=== PATIENT | female | born 1970 | race Caucasian/White ===

== ENCOUNTER 2017-04-17 13:26 | Emergency (ER) | payer OTHER ==
[~2017-04-17] VITALS: Ht 170.2 cm; Wt 74.7 kg
[~2017-04-17 13:26] MED LIST: BUPROPION XL300 MG PO; DOXYCYCLINE HY100 MG PO; ENDOCET 5-3251 EACH PO; EXCEDRIN MIGRA1 EAC3 PO; MOTRIN800 MG PO; NAPROSYN500 MG PO; SERTRALINE HCL100 MG PO
[2017-04-17 14:12] LABS: HEMATOCRIT 42.1 % (36.0-46.0); HEMOGLOBIN 13.7 G/DL (11.9-15.5); MCH 28.5 PG (29.0-34.0); MCHC 32.5 G/DL (30.0-36.0); MCV 87.7 FL (83-99); PLATELET COUNT 181 K/uL (156-360); RBC DIS.WIDTH-CV 13.4 % (11.8-14.6); RBC DIS.WIDTH-SD 43.4 % (39-53)
[2017-04-17 14:20] LABS: ALBUMIN 4.3 g/dL (3.2-4.8)
[2017-04-17 14:21] LABS: CHLORIDE 109 mEq/L (99-109); POTASSIUM 3.8 mEq/L (3.7-5.4); SODIUM 142 mEq/L (136-147)
[2017-04-17 14:23] LABS: GLUCOSE 124 mg/dL (70-99)
[2017-04-17 14:25] LABS: TOTAL BILIRUBIN 0.4 mg/dL (0.0-1.0)
[2017-04-17 14:26] LABS: ALKALINE PHOSPHATASE 71 IU/L (3-129)
[2017-04-17 14:27] LABS: CREATININE 0.8 mg/dL (0.6-1.3); GFR ESTIMATE (CALCULATED) > 59 mL/min/
[2017-04-17 14:28] LABS: AST (GOT) 37 IU/L (2-34); UREA NITROGEN (BUN) 10 mg/dL (9-23)
[2017-04-17 14:30] LABS: ALT (GPT) 34 IU/L (3-49)
[2017-04-17 14:37] LABS: QUANTITATIVE HCG < 4.0 MIU/ML
[2017-04-17 16:42] LABS: APPEARANCE CLOUDY ((CLEAR)); BILIRUBIN NEGATIVE; BLOOD SMALL; COLOR YELLOW ((YELLOW)); GLUCOSE (STRIP) NEGATIVE; KETONES 20; LEUKOCYTES SMALL; NITRITE NEGATIVE; PROTEIN (STRIP) 30; SPECIFIC GRAVITY 1.038 (1.000-1.030)
[2017-04-17 17:14] LABS: RED BLOOD CELLS RARE /HPF (0-5)
[2017-04-17 17:15] LABS: BACTERIA 1+ /HPF; EPITHELIAL CELLS 2+ /HPF; MUCUS 2+ /LPF; UCUL ADDED? NO; WHITE BLOOD CELLS RARE /HPF (0-5)
[2017-04-17] MEDS ORDERED: ZOFRAN ODT4 MG PO (17:30)
[2017-04-17] MEDS ORDERED: BENTYL10 MG PO (17:30)
[2017-04-17 17:51] VITALS: BP 112/59
== END 2017-04-17 17:52 | disposition home or self-care (01) ==
LOC: EME 13:26
DX: R11.2 Nausea with vomiting, unspecified (principal); R10.32 Left lower quadrant pain; R19.7 Diarrhea, unspecified; B34.9 Viral infection, unspecified; D25.9 Leiomyoma of uterus, unspecified
CPT/HCPCS: 74177; 80053; 81003; 84702; 85027; 99281; 99285; J1885; J2405; J7030